=== PATIENT | female | born 1960 | race Caucasian/White ===

== ENCOUNTER 2016-04-13 17:19 | Emergency (ER) | payer MEDICARE ==
[~2016-04-13] VITALS: Ht 165.1 cm; Wt 75.0 kg
[~2016-04-13 17:19] MED LIST: GLUCOSAMINE500 M2 PO; GREEN TEA150 MG PO; MULTIVITAMIN FO1 CAP PO; NORCO 325 MG-7.1 TAB PO; [UNRECOGNIZED DRUG - OTHER] PO
[2016-04-13 17:20] VITALS: TEMP 98.4
[2016-04-13] MEDS ORDERED: FLEXERIL 1010 MG/TAB PO (18:07)
[2016-04-13] MEDS ORDERED: MOTRIN 800800 MG/TAB PO (18:07)
[2016-04-13 18:37] VITALS: BP 133/83; PULSE 75
== END 2016-04-13 18:38 | disposition home or self-care (01) ==
LOC: COL.ER 17:19
DX: S13.4XXA Sprain of ligaments of cervical spine, initial encounter (principal); S16.1XXA Strain of muscle, fascia and tendon at neck level, initial encounter; V43.52XA Car driver injured in collision with other type car in traffic accident, initial encounter; Y92.410 Unspecified street and highway as the place of occurrence of the external cause; M47.812 Spondylosis without myelopathy or radiculopathy, cervical region

== ENCOUNTER → 2016-11-11 | Outpatient (CLI) | payer MEDICARE ==
[~2016-11-11] MED LIST changes: +FLEXERIL 1010 MG/TAB PO; +MOTRIN 800800 MG/TAB PO
== END ==
LOC: MC.RAD 11:20
DX: Z12.31 Encounter for screening mammogram for malignant neoplasm of breast (principal)

== ENCOUNTER → 2017-12-05 | Outpatient (CLI) | payer MEDICARE | LOC: MC.RAD 11:40 | DX: Z12.31 Encounter for screening mammogram for malignant neoplasm of breast (principal) ==

== ENCOUNTER → 2019-01-09 | Outpatient (CLI) | payer MEDICARE | LOC: MC.RAD 07:24 | DX: Z12.31 Encounter for screening mammogram for malignant neoplasm of breast (principal) ==

== ENCOUNTER → 2020-03-03 | Outpatient (CLI) | payer MEDICARE | LOC: COL.RAD 12:57 | DX: R07.89 Other chest pain (principal) | CPT/HCPCS: Q9967 ==

== ENCOUNTER → 2021-03-16 | Outpatient (CLI) | payer OTHER | LOC: MC.RAD 01-12 11:15 | DX: Z12.31 Encounter for screening mammogram for malignant neoplasm of breast (principal) ==

== ENCOUNTER → 2022-04-30 | Outpatient (CLI) | payer OTHER | LOC: COL.RAD 12:43 | DX: G44.52 New daily persistent headache (NDPH) (principal); H53.9 Unspecified visual disturbance | CPT/HCPCS: Q9967 ==